=== PATIENT | male | born 1980 | race Caucasian/White ===

== ENCOUNTER 2017-11-21 05:59 | Observation (INO) | payer BC ==
--- NOTE | 2017-11-21 06:43 | EDM.PDOC ---
ED HPI GENERAL MEDICAL PROBLEM - General Chief Complaint: Chest Pain Stated Complaint: CHEST PAIN Time Seen by Provider: 11/21/17 06:42 - History of Present Illness INITIAL COMMENTS - FREE TEXT/NARRATIVE: HISTORY AND PHYSICAL: History of present illness: Patient 37-year-old white male presents with chest pain described as tightness with no associated shortness of breath palpitations diaphoresis nausea vomiting Review of systems: As per history of present illness and below otherwise all systems reviewed and negative. Past medical history: As per history of present illness and as reviewed below otherwise noncontributory. Surgical history: As per history of present illness and as reviewed below otherwise noncontributory. Social history: No reported history of drug or alcohol abuse. Family history: As per history of present illness and as reviewed below otherwise noncontributory. Physical exam: HEENT: Atraumatic, normocephalic, pupils reactive, negative for conjunctival pallor or scleral icterus, mucous membranes moist, throat clear, neck supple, nontender, trachea midline. Lungs: Clear to auscultation, breath sounds equal bilaterally, chest nontender. Heart: S1S2, regular, negative for clicks, rubs, or JVD. Abdomen: Soft, nondistended, nontender. Negative for masses or hepatosplenomegaly. Negative for costovertebral tenderness. Pelvis: Stable nontender. Genitourinary: Deferred. Rectal: Deferred. Extremities: Atraumatic, negative for cords or calf pain. Neurovascular unremarkable. Neuro: Awake, alert, oriented. Cranial nerves II through XII unremarkable. Cerebellum unremarkable. Motor and sensory unremarkable throughout. Exam nonfocal. Diagnostics: CBC CMP PT/INR troponin chest x-ray EKG Therapeutics: IV O2 monitor Impression: #1 chest pain Definitive disposition and diagnosis as appropriate pending reevaluation and review of above. chest Pain Score (Numeric/FACES): 3 - Related Data Allergies Allergy/AdvReac Type Severity Reaction Status Date / Time amoxicillin [Amoxicillin] Allergy Cannot Verified 05/05/14 09:13 Remember Dairy Products Allergy Nausea and Verified 05/05/14 09:13 Vomiting Penicillins Allergy Cannot Verified 05/05/14 09:13 Remember Home Meds: Home Meds Bacillus Coagulans [Probiotic] 1 each PO DAILY 11/21/17 [History] Past Medical History - Past Health History Medical/Surgical History: Denies Medical/Surgical History HEENT History: Reports: None Cardiovascular History: Reports: None Respiratory History: Reports: None Gastrointestinal History: Reports: Other (See Below) Other Gastrointestinal History: colitis Genitourinary History: Reports: None Musculoskeletal History: Reports: None Neurological History: Reports: None Psychiatric History: Reports: None Endocrine/Metabolic History: Reports: None Dermatologic History: Reports: None - Infectious Disease History Infectious Disease History: Reports: Chicken Pox - Past Surgical History GI Surgical History: Reports: Appendectomy Male Surgical History: Reports: None Social & Family History - Family History Family Medical History: Noncontributory - Tobacco Use Smoking Status *Q: Never Smoker - Alcohol Use Days Per Week of Alcohol Use: 0 - Recreational Drug Use Recreational Drug Use: No ED ROS GENERAL - Review of Systems Review Of Systems: ROS reveals no pertinent complaints other than HPI. ED EXAM, GENERAL - Physical Exam Exam: See Below (See dictation) Course - Vital Signs Last Recorded V/S: Last Vital Signs Temp 35.9 C 11/21/17 06:05 Pulse 89 11/21/17 06:35 Resp 12 11/21/17 06:35 BP 150/106 H 11/21/17 06:35 Pulse Ox 96 11/21/17 06:35 - Orders/Labs/Meds Orders: Active Orders 24 hr Category Date Time Status EKG 12 Lead [EKG Documentation Completion] [RC] STAT Care 11/21/17 06:08 Active Chest 1V Frontal [CR] Stat Exams 11/21/17 06:08 Taken CKMB [CHEM] Stat Lab 11/21/17 06:17 Received COMPREHENSIVE METABOLIC PN,CMP [CHEM] Stat Lab 11/21/17 06:17 Received TROPONIN I [CHEM] Stat Lab 11/21/17 06:17 Received Labs: Laboratory Tests 11/21/17 Range/Units 06:17 WBC 8.37 (4.0-11.0) K/uL RBC 5.09 (4.50-5.90) M/uL Hgb 15.0 (13.0-17.0) g/dL Hct 43.0 (38.0-50.0) % MCV 84.5 (80.0-98.0) fL MCH 29.5 (27.0-32.0) pg MCHC 34.9 (31.0-37.0) g/dL RDW Std Deviation 39.3 (28.0-62.0) fl RDW Coeff of [place] 13 (11.0-15.0) % Plt Count 255 (150-400) K/uL MPV 8.90 (7.40-12.00) fL Neut % (Auto) 61.8 (48.0-80.0) % Lymph % (Auto) 29.7 (16.0-40.0) % [place] % (Auto) 6.0 (0.0-15.0) % Eos % (Auto) 2.0 (0.0-7.0) % Baso % (Auto) 0.5 (0.0-1.5) % Neut # (Auto) 5.2 (1.4-5.7) K/uL Lymph # (Auto) 2.5 H (0.6-2.4) K/uL [place] # (Auto) 0.5 (0.0-0.8) K/uL Eos # (Auto) 0.2 (0.0-0.7) K/uL Baso # (Auto) 0.0 (0.0-0.1) K/uL Nucleated RBC % 0.0 /100WBC Nucleated RBCs # 0 K/uL Departure - Departure Time of Disposition: 07:07 Disposition: Refer to Observation Condition: Good Clinical Impression: Chest pain - Discharge Information Referrals: PCP,None [Primary Care Provider] - Forms: ED Department Discharge - My Orders Last 24 Hours: My Active Orders 11/21/17 06:08 EKG 12 Lead [EKG Documentation Completion] [RC] STAT Chest 1V Frontal [CR] Stat 11/21/17 06:17 CKMB [CHEM] Stat COMPREHENSIVE METABOLIC PN,CMP [CHEM] Stat TROPONIN I [CHEM] Stat - Assessment/Plan Last 24 Hours: My Active Orders 11/21/17 06:08 EKG 12 Lead [EKG Documentation Completion] [RC] STAT Chest 1V Frontal [CR] Stat 11/21/17 06:17 CKMB [CHEM] Stat COMPREHENSIVE METABOLIC PN,CMP [CHEM] Stat TROPONIN I [CHEM] Stat
[2017-11-21 06:56] LABS: CHLORIDE,CL 104 mmol/L (98-107); SODIUM,NA 139 mmol/L (136-148)
[2017-11-21] MEDS ORDERED: Sodium Chloride 0.9% 2.5 ML Syringe FLUSH PRN (08:14)
[2017-11-21] MEDS ORDERED: Acetaminophen 325 MG Tab PO PRN (08:14)
[2017-11-21] MEDS ORDERED: Ondansetron 4 MG/2 ML SDV IVPUSH PRN (08:14)
--- NOTE | 2017-11-21 09:54 | CR ---
EXAM DATE: 11/21/17 PATIENT'S AGE: 37 Patient: JOSE ELIAS PAGAN Facility: [place], [place] Site . Site : [id number] Study: XRay Chest [id number]/[id number] 6:20:56 AM Ordering Physician: Doctor Bella Final Report: INDICATION: Chest pain COMPARISON: none TECHNIQUE: Portable AP erect chest performed at 6:11 a.m. FINDINGS: The lungs are clear. There is no evidence a pneumothorax. The heart, mediastinum and pulmonary vessels are of normal size. There is no evidence of pleural fluid. IMPRESSION: Negative chest. Dictated by Cortez Estrada MD @ Nov 21 2017 6:25AM (Electronic Signature) Report Signed by Proxy. GREGG
[2017-11-21] MEDS ORDERED: Multivitamins with Iron/Calcium/Folic Acid/Minerals Tab PO SCH (11:00)
--- NOTE | 2017-11-21 11:04 | PCM.HP ---
H&P History of Present Illness - General Date of Service: 11/21/17 Admit Problem/Dx: Admission Diagnosis/Problem Admission Diagnosis/Problem Chest pain Source of Information: Patient History Limitations: Reports: No Limitations - History of Present Illness Initial Comments - Free Text/Narative: This 37 year old male with pmh of obesity and Ulcerative colitis presented to the ED today with complaints of midsternal chest pain which radiated throughout his chest. This happened at rest, with some shortness of breath and dizziness. He reports yesterday he was not feeling quite right, had some nausea and vomiting along with diarrhea. Didn't necessarily notice chest pain but looking back he feels he had some similar pain yesterday as well. He denies any other medical history, no known CAD or DM. Family history of uncles with CAD and LA is their 50-60s and mother has diabetes. His father from MVC many years ago. He does not smoke or use tobacco, rare alcohol use and no recreational drug use. In the ED labwork all WNL. Glucose was noted to be slightly elevated 118, A1c add at was noted to be 7.4. Cholesterol total 242, LCL 156, HDL 53, and triglycerides 165. Troponin negative in the ED. EKG SR with no ischemic changes. BP elevated 150-170/100s in ED. No medications given. Admitted for observation with chest pain R/O ASC No PCP. chest Pain Score (Numeric/FACES): 3 - Related Data Allergies/Adverse Reactions: Allergies Allergy/AdvReac Type Severity Reaction Status Date / Time amoxicillin [Amoxicillin] Allergy Cannot Verified 05/05/14 09:13 Remember Dairy Products Allergy Nausea and Verified 05/05/14 09:13 Vomiting Penicillins Allergy Cannot Verified 05/05/14 09:13 Remember Home Medications: Home Meds Aspirin 81 mg PO DAILY #0 tab.chew 11/21/17 [Rx] Bacillus Coagulans [Probiotic] 1 each PO DAILY 11/21/17 [History] Blood Sugar Diagnostic [Test Strips] 1 each MC DAILY #1 box 11/21/17 [Rx] Lancets 1 each MC DAILY #1 box 11/21/17 [Rx] Lisinopril [Prinivil] 10 mg PO DAILY #30 tablet 11/21/17 [Rx] Multivitamin [Poly-Vitamin] 1 each PO ASDIRECTED 11/21/17 [History] atorvaSTATin [Lipitor] 10 mg PO BEDTIME #30 tablet 11/21/17 [Rx] metFORMIN [Glucophage] 500 mg PO BIDMEALS #60 tablet 11/21/17 [Rx] Past Medical History - Past Health History Medical/Surgical History: Denies Medical/Surgical History HEENT History: Reports: Impaired Vision Cardiovascular History: Reports: None. Denies: Afib, Blood Clots/VTE/DVT, CAD, High Cholesterol, Hypertension, LA Respiratory History: Reports: None. Denies: Asthma, COPD, PE Gastrointestinal History: Reports: Inflammatory Bowel Disease (UC- Follows with Dr Oropeza in [place].) Genitourinary History: Reports: Acute Renal Failure, Other (See Below) Other Genitourinary History: ARF in 2013 Musculoskeletal History: Reports: Back Pain, Chronic Neurological History: Reports: None. Denies: CVA, TIA Psychiatric History: Reports: None Endocrine/Metabolic History: Reports: Obesity/BMI 30+. Denies: Diabetes, Type II, Hypothyroidism Hematologic History: Reports: Blood Transfusion(s) Immunologic History: Reports: Immunosuppression Dermatologic History: Reports: None - Infectious Disease History Infectious Disease History: Reports: Chicken Pox - Past Surgical History GI Surgical History: Reports: Appendectomy, Colonoscopy, EGD, Other (See Below) Other GI Surgeries/Procedures: EGD 1998 Neurological Surgical History: Reports: None Musculoskeletal Surgical History: Reports: None Social & Family History - Family History Family Medical History: Noncontributory - Tobacco Use Smoking Status *Q: Never Smoker Second Hand Smoke Exposure: No - Caffeine Use Caffeine Use: Reports: Coffee Caffeine Use Comment: 1 cup coffee per day; energy drinks 2x/week; 20+ oz soda daily - Alcohol Use Days Per Week of Alcohol Use: 0 Alcohol Use Frequency: Socially - Recreational Drug Use Recreational Drug Use: No H&P Review of Systems - Review of Systems: Review Of Systems: See Below General: Reports: Malaise, Weakness. Denies: Fever, Chills HEENT: Reports: No Symptoms. Denies: Sinus Congestion, Sore Throat, Vertigo Pulmonary: Denies: Shortness of Breath, Wheezing, Cough, Sputum Cardiovascular: Reports: Chest Pain, Lightheadedness Gastrointestinal: Reports: Diarrhea (yesterday.), Nausea, Vomiting. Denies: Abdominal Pain, Black Stool, Bloody Stool Genitourinary: Reports: No Symptoms. Denies: Dysuria, Frequency, Burning Musculoskeletal: Reports: No Symptoms. Denies: Neck Pain Psychiatric: Reports: No Symptoms. Denies: Confusion Neurological: Reports: No Symptoms. Denies: Confusion Hematologic/Lymphatic: Reports: No Symptoms Immunologic: Reports: No Symptoms Exam - Exam Exam: See Below - Vital Signs Vital Signs: Last Vital Signs Temp 96.8 F 11/21/17 08:00 Pulse 81 11/21/17 08:00 Resp 16 11/21/17 08:00 BP 173/96 H 11/21/17 08:00 Pulse Ox 96 11/21/17 08:32 Weight: 112 kg - Exam Quality Assessment: Supplemental Oxygen, DVT Prophylaxis General: Alert, Oriented, Cooperative HEENT: Conjunctiva Clear, Mucosa Moist & [place], Posterior Pharynx Clear, Pupils Equal Neck: Supple, Trachea Midline, Full Range of Motion. No: Lymphadenopathy Lungs: Clear to Auscultation, Normal Respiratory Effort Cardiovascular: Regular Rate, Regular Rhythm GI/Abdominal Exam: Normal Bowel Sounds, Soft, Non-Tender, No Organomegaly, No Distention, No Abnormal Bruit, No Mass, Pelvis Stable Extremities: Normal Inspection, Normal Range of Motion, Non-Tender, No Pedal Edema, Normal Capillary Refill Neuro Extensive - Mental Status: Alert, Oriented x3, Normal Mood/Affect, Normal Cognition Neuro Extensive - Motor, Sensory, Reflexes: CN II-XII Intact, Normal Gait, Normal Reflexes Psychiatric: Alert, Normal Affect, Normal Mood - Patient Data Lab Results Last 24 hrs: Laboratory Results - last 24 hr 11/21/17 11/21/17 11/21/17 Range/Units 06:17 06:17 06:17 WBC 8.37 (4.0-11.0) K/uL RBC 5.09 (4.50-5.90) M/uL Hgb 15.0 (13.0-17.0) g/dL Hct 43.0 (38.0-50.0) % MCV 84.5 (80.0-98.0) fL MCH 29.5 (27.0-32.0) pg MCHC 34.9 (31.0-37.0) g/dL RDW Std Deviation 39.3 (28.0-62.0) fl RDW Coeff of [place] 13 (11.0-15.0) % Plt Count 255 (150-400) K/uL MPV 8.90 (7.40-12.00) fL Neut % (Auto) 61.8 (48.0-80.0) % Lymph % (Auto) 29.7 (16.0-40.0) % [place] % (Auto) 6.0 (0.0-15.0) % Eos % (Auto) 2.0 (0.0-7.0) % Baso % (Auto) 0.5 (0.0-1.5) % Neut # (Auto) 5.2 (1.4-5.7) K/uL Lymph # (Auto) 2.5 H (0.6-2.4) K/uL Henry # (Auto) 0.5 (0.0-0.8) K/uL Eos # (Auto) 0.2 (0.0-0.7) K/uL Baso # (Auto) 0.0 (0.0-0.1) K/uL Nucleated RBC % 0.0 /100WBC Nucleated RBCs # 0 K/uL Sodium 139 (136-148) mmol/L Potassium 3.6 (3.5-5.1) mmol/L Chloride 104 (98-107) mmol/L Carbon Dioxide 25.2 (21.0-32.0) mmol/L BUN 15 (7.0-18.0) mg/dL Creatinine 1.3 (0.8-1.3) mg/dL Est Cr Clr Drug Dosing 80.33 mL/min Estimated GFR (MDRD) > 60.0 ml/min Glucose 203 H (74-106) mg/dL Hemoglobin A1c (4.5-6.2) % Calcium 8.9 (8.5-10.1) mg/dL Total Bilirubin 0.5 (0.2-1.0) mg/dL AST 24 (15-37) IU/L ALT 47 (14-63) IU/L Alkaline Phosphatase 107 (46-116) U/L CK-MB (CK-2) 0.4 (0-3.6) ng/mL Troponin I < 0.050 (0.000-0.056) ng/mL Total Protein 7.2 (6.4-8.2) g/dL Albumin 3.8 (3.4-5.0) g/dL Globulin 3.4 (2.0-3.5) g/dL Albumin/Globulin Ratio 1.1 L (1.3-2.8) Triglycerides 165 (0-200) mg/dL Cholesterol 242 H (50-200) mg/dL LDL Cholesterol, Calc 156 (60-180) mg/dL VLDL Cholesterol 33 (5-55) mg/dL HDL Cholesterol 53 (40-60) mg/dL Cholesterol/HDL Ratio 4.6 (3.3-6.0) 11/21/17 Range/Units 06:17 WBC (4.0-11.0) K/uL RBC (4.50-5.90) M/uL Hgb (13.0-17.0) g/dL Hct (38.0-50.0) % MCV (80.0-98.0) fL MCH (27.0-32.0) pg MCHC (31.0-37.0) g/dL RDW Std Deviation (28.0-62.0) fl RDW Coeff of [place] (11.0-15.0) % Plt Count (150-400) K/uL MPV (7.40-12.00) fL Neut % (Auto) (48.0-80.0) % Lymph % (Auto) (16.0-40.0) % Henry % (Auto) (0.0-15.0) % Eos % (Auto) (0.0-7.0) % Baso % (Auto) (0.0-1.5) % Neut # (Auto) (1.4-5.7) K/uL Lymph # (Auto) (0.6-2.4) K/uL Henry # (Auto) (0.0-0.8) K/uL Eos # (Auto) (0.0-0.7) K/uL Baso # (Auto) (0.0-0.1) K/uL Nucleated RBC % /100WBC Nucleated RBCs # K/uL Sodium (136-148) mmol/L Potassium (3.5-5.1) mmol/L Chloride (98-107) mmol/L Carbon Dioxide (21.0-32.0) mmol/L BUN (7.0-18.0) mg/dL Creatinine (0.8-1.3) mg/dL Est Cr Clr Drug Dosing mL/min Estimated GFR (MDRD) ml/min Glucose (74-106) mg/dL Hemoglobin A1c 7.4 H (4.5-6.2) % Calcium (8.5-10.1) mg/dL Total Bilirubin (0.2-1.0) mg/dL AST (15-37) IU/L ALT (14-63) IU/L Alkaline Phosphatase (46-116) U/L CK-MB (CK-2) (0-3.6) ng/mL Troponin I (0.000-0.056) ng/mL Total Protein (6.4-8.2) g/dL Albumin (3.4-5.0) g/dL Globulin (2.0-3.5) g/dL Albumin/Globulin Ratio (1.3-2.8) Triglycerides (0-200) mg/dL Cholesterol (50-200) mg/dL LDL Cholesterol, Calc (60-180) mg/dL VLDL Cholesterol (5-55) mg/dL HDL Cholesterol (40-60) mg/dL Cholesterol/HDL Ratio (3.3-6.0) Result Diagrams: 11/21/17 06:17 11/21/17 06:17 EKG INTERPRETATION EKG Date: 11/21/17 Rhythm: NSR Rate (Beats/Min): 80 P-Wave: Present QRS: Normal ST-T: Normal QT: Normal *Q Meaningful Use (ADM) - VTE Risk Assess *Q Each Risk Factor Represents 1 Point: None Total Score 1 Point Risk Factors: 0 Each Risk Factor Represents 2 Points: None Total Score 2 Point Risk Factors: 0 Each Risk Factor Represents 3 Points: None Total Score 3 Point Risk Factors: 0 Each Risk Factor Represents 5 Points: None Total Score 5 Point Risk Factors: 0 Venous Thromboembolism Risk Factor Score *Q: 0 - Problem List (1) Chest pain SNOMED Code(s): 40964165 ICD Code: R07.9 - CHEST PAIN, UNSPECIFIED Status: Acute Current Visit: Yes Qualifiers: Chest pain type: unspecified Qualified Code(s): R07.9 - Chest pain, unspecified (2) Dyslipidemia SNOMED Code(s): 626195151 ICD Code: E78.5 - HYPERLIPIDEMIA, UNSPECIFIED Status: Acute Current Visit : Yes (3) New onset type 2 diabetes mellitus SNOMED Code(s): 56542116 ICD Code: E11.9 - TYPE 2 DIABETES MELLITUS WITHOUT COMPLICATIONS Status: Acute Current Visit: Yes (4) Ulcerative colitis SNOMED Code(s): 33973178 ICD Code: K51.90 - ULCERATIVE COLITIS, UNSPECIFIED, WITHOUT COMPLICATIONS Status: Chronic Current Visit: Yes (5) Obesity (BMI 30-39.9) SNOMED Code(s): 800588106, 181567867 ICD Code: E66.9 - OBESITY, UNSPECIFIED Status: Chronic Current Visit: Yes (6) HTN (hypertension) SNOMED Code(s): 70154054 ICD Code: I10 - ESSENTIAL (PRIMARY) HYPERTENSION Status: Acute Current Visit: Yes Problem List Initiated/Reviewed/Updated: Yes Orders Last 24hrs: Active Orders 24 hr Category Date Time Status Patient Status [ADT] Stat ADT 11/21/17 07:12 Active EKG 12 Lead [EKG Documentation Completion] [RC] STAT Care 11/21/17 06:08 Active Intake and Output [RC] QSHIFT Care 11/21/17 08:14 Active Oxygen Therapy [RC] PRN Care 11/21/17 08:14 Active Telemetry Monitoring [Cardiac Monitoring] [RC] . Care 11/21/17 08:16 Active DIRECTED Up ad Kalie [RC] ASDIRECTED Care 11/21/17 08:14 Active VTE/DVT Education [RC] PER UNIT ROUTINE Care 11/21/17 08:14 Active Vital Signs [RC] Q4H Care 11/21/17 08:14 Active Heart Healthy Diet [DIET] Diet 11/21/17 Breakfast Active TROPONIN I [CHEM] Q6H Lab 11/21/17 12:15 Ordered TROPONIN I [CHEM] Q6H Lab 11/21/17 18:15 Ordered Acetaminophen [Tylenol] Med 11/21/17 08:14 Active 650 mg PO Q4H PRN Multivitamins w-Iron/Ca/FA/Min [Thera M Plus] Med 11/21/17 11:00 Active 1 tab PO DAILY Ondansetron [Zofran] Med 11/21/17 08:14 Active 4 mg IVPUSH Q4H PRN Sodium Chloride 0.9% [Saline Flush] Med 11/21/17 08:14 Active 2.5 ml FLUSH ASDIRECTED PRN Saline Lock Insert [OM.PC] Routine Oth 11/21/17 08:14 Ordered Sequential Compression Device [OM.PC] Per Unit Routine Oth 11/21/17 08:14 Ordered Resuscitation Status Routine Resus Stat 11/21/17 08:14 Ordered Medication Orders Acetaminophen (Tylenol) 650 mg PO Q4H PRN PRN Reason: Pain (mild 1-3) Multivitamins/Minerals (Thera M Plus) 1 tab PO DAILY JAISON Ondansetron HCl (Zofran) 4 mg IVPUSH Q4H PRN PRN Reason: Nausea Sodium Chloride (Saline Flush) 2.5 ml FLUSH ASDIRECTED PRN PRN Reason: Keep Vein Open Assessment/Plan Comment:: This 37 year old male admitted with chest pain R/O ACS 1. Chest pain: Will trend troponins and monitor on telemetry. Obtain A1c and lipid panel see below. Currently no chest pain. Will need to arrange outpatient stress test. 2. New onset DM: A1c returned at 7.4. Will consult DM educator. Will start Metformin 500 mg BID for now and have him follow with PCP. Encouraged weight loss. 3. Dyslipidemia: Will need to start statin due to new onset DM. Will start upon discharge. 4. HTN: New diagnoses, BP 140-170/100s. Will Start Lisinopril 10 mg and monitor. VTE prophylaxis: SCDs. Discharge Plan: Discharge Diagnoses: Chest pain-resolved New onset Type 2 DM HTN Dyslipidemia Hx Ulcerative Colitis Raphael was admitted and monitored on observation for chest pain. Troponins were trended and found to be negative. Telemetry remained SR with no signs of ischemic changes. During chest pain work up it was noted his A1c was elevated at 7.4. He has no history of Type 2 DM, but has family history. Diabetic education consulted and visited with him. he will be started on Metformin 500 mg BIDmeals for now and monitoring BS daily.BP elevated in the ED at 160-170s/ 100, Lisinopril 10 mg added and BP improvevd to 140/90-100, lowering of this also helped with dizziness and chest pressure. He has been pain free since this afternoon. He will also be started on Atorvastatin 10 mg daily for dyslipidemia. He and his were educated on each new medication including common side effects of these and things to watch for. He will be arranged for outpatient stress test. He was also set up with PCP in our facility since he has not had good follow up in many years. Regarding his ulcerative colitis, he has not had a colonoscopy in 2 years, he was urged to return to Dr Oropeza for this important follow up with UC, he verbalized agreement. he will be sent home this evening. He was encouraged to return to ED or clinic if concerns should arise.
[2017-11-21] MEDS ORDERED: Aspirin 81 MG Tab.Chew PO SCH (11:15)
[2017-11-21] MEDS ORDERED: Pantoprazole 40 MG Vial IVPUSH ONE (11:15)
[2017-11-21] MEDS ORDERED: Alum Hydrox/Mag Hydrox/Simeth 15 ML, Lidocaine 2% 5 ML PO ONE ×2 (11:15)
[2017-11-21] MEDS ORDERED: Lisinopril 10 MG Tab PO SCH (12:15)
[2017-11-21] MEDS ORDERED: metFORMIN 500 MG Tab PO SCH (17:00)
[2017-11-21] MEDS ORDERED: atorvaSTATin 10 MG Tab PO SCH (21:00)
== END 2017-11-21 20:00 | disposition home or self-care (01) ==
LOC: MW.ED 05:59 → MW.MS 07:12
PROVIDERS: ADMIT Family Medicine; ATTEND Family Medicine
DX: R07.2 Precordial pain (principal); E66.9 Obesity, unspecified; E78.5 Hyperlipidemia, unspecified; E11.9 Type 2 diabetes mellitus without complications; K51.90 Ulcerative colitis, unspecified, without complications; I10 Essential (primary) hypertension; Z82.49 Family history of ischemic heart disease and other diseases of the circulatory system; Z88.1 Allergy status to other antibiotic agents; Z88.0 Allergy status to penicillin; Z91.011 Allergy to milk products; Z79.82 Long term (current) use of aspirin; Z79.899 Other long term (current) drug therapy; Z79.84 Long term (current) use of oral hypoglycemic drugs; Z68.30 Body mass index [BMI] 30.0-30.9, adult; Z90.49 Acquired absence of other specified parts of digestive tract
CPT/HCPCS: 71045; 80053; 80061; 82553; 83036; 84484; 85025; 93005; 96374; 99285; A9270; C9113; G0378; 99283

== ENCOUNTER 2025-03-02 19:08 | Emergency (ER) | payer BC | END 2025-03-02 20:46 | disposition home or self-care (01) | LOC: MW.ED 19:08 | DX: B02.9 Zoster without complications (principal); E11.9 Type 2 diabetes mellitus without complications; Z75.3 Unavailability and inaccessibility of health-care facilities; Z90.49 Acquired absence of other specified parts of digestive tract; E66.9 Obesity, unspecified; Z79.899 Other long term (current) drug therapy; Z79.84 Long term (current) use of oral hypoglycemic drugs; Z88.0 Allergy status to penicillin; Z91.011 Allergy to milk products; Z68.27 Body mass index [BMI] 27.0-27.9, adult | CPT/HCPCS: 99283 ==